=== PATIENT | female | born 2000 | race Caucasian/White ===

== ENCOUNTER 2019-02-19 21:41 | Emergency (ER) | payer OTHER ==
[2019-02-19] MEDS ORDERED: NS 1,000 ML IV ONE ×3 (21:54→23:30)
--- NOTE | 2019-02-19 21:55 | EDPHY ---
H & P Stated Complaint: Fever, dehydrated, body aches, lethargic Time Seen by Provider: 02/19/19 21:54 HPI/ROS: HPI CHIEF COMPLAINT: Fever, muscle aches, joint pain, dry cough, sore throat, fatigue HISTORY OF PRESENT ILLNESS: 18-year-old female, did not get her flu shot this year, presents emergency room with a constellation of symptoms like flu-like illness, presents with fever, muscle aches, joint pain, dry cough, sore throat, fatigue started 24 hr ago. T-max at home 102. Denies vomiting. Denies productive cough, denies abdominal pain. Main complaint generalized weakness, muscle aches and joint pain. Past Medical History: Denies Past Surgical History: Denies Social History: [employer] student, denies drugs alcohol tobacco. Family History: Noncontributory ROS REVIEW OF SYSTEMS: 10 Systems were reviewed and negative with the exception of the elements mentioned in the history of present illness. Exam Constitutional nontoxic triage nursing summary reviewed, vital signs reviewed, awake/alert. Noted be tachycardic 120, 38.3 at triage. Eyes normal conjunctivae and sclera, EOMI, PERRLA. HENT posterior pharynx unremarkable normal inspection, atraumatic, moist mucus membranes, no epistaxis, neck supple/ no meningismus, no raccoon eyes. Respiratory clear to auscultation bilaterally, normal breath sounds, no respiratory distress, no wheezing. Cardiovascular tachycardia regular rhythm, no murmur, no edema, distal pulses normal. Gastrointestinal soft, non-tender, no rebound, no guarding, normal bowel sounds, no distension, no pulsatile mass. Genitourinary no CVA tenderness. Musculoskeletal no midline vertebral tenderness, full range of motion, no calf swelling, no tenderness of extremities, no meningismus, good pulses, neurovascularly intact. Skin pink, warm, & dry, no rash, skin atraumatic. Neurologic awake, alert and oriented x 3, AAOx3, moves all 4 extremities equally, motor intact, sensory intact, CN II-XII intact, normal cerebellar, normal vision, normal speech. Psychiatric normal mood/affect. Heme/Lymph/Immune no lymphadenopathy. Differential Diagnosis: Includes but is not limited to in a particular order acute febrile illness, viral syndrome, influenza, bacteremia, sepsis, pneumonia , UTI Medical Decision Making: Plan for this patient IV establishment IV fluids 2 L normal saline, Tylenol and Motrin for fever control, basic lab work, influenza test, urinalysis. Re-evaluation: Patient been accepted at [facility] by Dr. Anni Hunter. Medicine in patient's status. Patient here with flu-like illness with fever, muscle aches and joint pain, her urinalysis concerning for urinary tract infection. Urine cultures been sent. Additionally given the patient 2 g of IV Rocephin. She has had 3 L of fluid here. Her vital signs have improved with her tachycardia resolving. Blood pressure stable. Afebrile this time. Blood culture and urine culture sent. Lactic acid less than 1 Plan for admission the hospital overnight. Accepted at [facility]. Patient has [address] [employer] insurance. Patient agrees for transfer. Source: Patient - Personal History LMP (Females 10-55): Irregular Current Tetanus Diphtheria and Acellular Pertussis (TDAP): Yes - Medical/Surgical History Hx Asthma: No Hx Chronic Respiratory Disease: No Hx Diabetes: No Hx Cardiac Disease: No Hx Renal Disease: No Hx Cirrhosis: No Hx Alcoholism: No Hx HIV/AIDS: No Hx Splenectomy or Spleen Trauma: No Other PMH: Denies - Social History Smoking Status: Never smoked Constitutional: Initial Vital Signs Temperature (C) 38.3 C 02/19/19 21:45 Heart Rate 120 H 02/19/19 21:45 Respiratory Rate 18 02/19/19 21:45 Blood Pressure 114/79 02/19/19 21:45 O2 Sat (%) 97 02/19/19 21:45 O2 Delivery Mode Room Air Allergies/Adverse Reactions: No Known Allergies Allergy (Unverified 02/19/19 21:47) Home Medications: Medication Instructions Recorded NK [No Known Home Meds] 02/19/19 Medical Decision Making - Data Points Laboratory Results: Laboratory Results 02/19/19 22:05 02/19/19 22:05 02/19/19 Unknown Group A Strep DNA NEGATIVE (NEGATIVE) Microbiology Results: MICROBIOLOGY 02/19/19 23:10 Urine,Clean Catch Urine Culture - Preliminary Gram Negative Raul Staphylococcus Sp Coag Neg Enterococcus Faecalis Two [place] Types Medications Given: Discontinued Medications Acetaminophen (Tylenol) 1,000 mg PO EDNOW ONE Stop: 02/19/19 22:03 Last Admin: 02/19/19 22:10 Dose: 1,000 mg Sodium Chloride (Ns) 1,000 mls @ 0 mls/hr IV EDNOW ONE; Wide Open PRN Reason: Protocol Stop: 02/19/19 21:55 Last Admin: 02/19/19 22:10 Dose: 1,000 mls Sodium Chloride (Ns) 1,000 mls @ 0 mls/hr IV EDNOW ONE; Wide Open PRN Reason: Protocol Stop: 02/19/19 21:55 Last Admin: 02/19/19 22:10 Dose: 1,000 mls Sodium Chloride (Ns) 1,000 mls @ 0 mls/hr IV ONCE ONE PRN Reason: Wide Open Stop: 02/19/19 23:31 Last Admin: 02/19/19 23:41 Dose: 1,000 mls Ceftriaxone Sodium 2 gm/ (Sodium Chloride) 50 mls @ 100 mls/hr IV EDNOW ONE PRN Reason: Protocol Stop: 02/20/19 00:21 Last Admin: 02/20/19 00:07 Dose: 50 mls Ibuprofen (Motrin) 800 mg PO EDNOW ONE Stop: 02/19/19 21:57 Last Admin: 02/19/19 22:10 Dose: Not Given Departure - Departure Disposition: [facility] Clinical Impression: UTI (urinary tract infection) Qualifiers: Urinary tract infection type: acute cystitis Hematuria presence: with hematuria Qualified Code(s): N30.01 - Acute cystitis with hematuria Fever Qualifiers: Fever type: unspecified Qualified Code(s): R50.9 - Fever, unspecified Condition: Fair Referrals: NONE *PRIMARY CARE P,. [Primary Care Provider] - As per Instructions
[2019-02-19] MEDS ORDERED: IBUPROFEN 800 MG TAB PO ONE (21:56)
[2019-02-19] MEDS ORDERED: ACETAMINOPHEN 500 MG TAB PO ONE (22:02)
[2019-02-19 22:23] LABS: PLATELET COUNT 258 10^3/uL (150-400)
[2019-02-20] MEDS ORDERED: cefTRIAXone 1 GM/DEXTROSE 1 GM/50 ML BAG IV ONE (00:04)
[2019-02-20 00:50] VITALS: BP 109/74
== END 2019-02-20 00:54 | disposition short-term general hospital (02) ==
DX: N30.01 Acute cystitis with hematuria (principal); E86.9 Volume depletion, unspecified
CPT/HCPCS: 96365; J0696